=== PATIENT | male | born 1975 | race Caucasian/White ===

== ENCOUNTER 2017-12-08 08:11 | Observation (INO) | payer OTHER ==
--- NOTE | 2017-12-08 08:34 | EDPHY ---
H & P Stated Complaint: Abd "cramps" since last daphnie; n/v Time Seen by Provider: 12/08/17 08:34 - Personal History Current Tetanus Diphtheria and Acellular Pertussis (TDAP): Yes - Medical/Surgical History Other PMH: neg - Social History Smoking Status: Never smoked Constitutional: Initial Vital Signs Temperature (C) 36.7 C 12/08/17 08:13 Heart Rate 46 L 12/08/17 08:13 Respiratory Rate 16 12/08/17 08:13 Blood Pressure 112/72 12/08/17 08:13 O2 Sat (%) 99 12/08/17 08:13 O2 Delivery Mode Room Air Allergies/Adverse Reactions: No Known Allergies Allergy (Unverified 12/08/17 08:16) Home Medications: Medication Instructions Recorded NK [No Known Home Meds] 12/08/17 Medical Decision Making - Diagnostics Imaging: Discussed imaging studies w/ sheet metal assembler Radiologist, I viewed and interpreted images myself ED Course/Re-evaluation: CHIEF COMPLAINT: Abdominal pain HISTORY OF PRESENT ILLNESS: The patient is a 42 y/o male arriving with his complaining of abdominal cramping onset yesterday. Pain has gradually progressed throughout the day and he had difficulty sleeping last night due to symptoms. Pain now seems more localized to his RLQ and he has associated nausea. No history of abdominal surgeries other than inguinal hernia repair. No recent illness, recent trauma, fever, vomiting, diarrhea, urinary symptoms, testicular pain. Last PO intake 20:00 last night, no appetite today. REVIEW OF SYSTEMS: A comprehensive 10 system review of systems is otherwise negative aside from elements mentioned in the history of present illness and medical decision making. PHYSICAL EXAM: HR, BP, O2 Sat, RR. Temp noted General Appearance: Alert, well hydrated, appropriate, and non-toxic appearing. Head: Atraumatic without scalp tenderness or obvious injury Eyes: Pupils equal, round, reactive to light and accommodation, EOMI, no trauma , no injection. Nose: Atraumatic, no rhinorrhea, clear. Throat: Mucus membranes moist. Neck: Supple, nontender, no lymphadenopathy. Respiratory: No retractions, no distress, no wheezes, and no accessory muscle use. Lungs are clear to auscultation bilaterally. Cardiovascular: Regular rate and rhythm, no murmurs, rubs, or gallops. Good capillary refill all extremities. Gastrointestinal: Abdomen is soft, RLQ/McBurney's point tenderness, non- distended, no masses, no rebound, no guarding, no peritoneal signs. Musculoskeletal: Normal active ROM of all extremities, atraumatic. Neurological: Alert, appropriate, and interactive. Nonfocal. Skin: No rashes, good turgor, no nodules on palpation. Past medical history: Denies Past surgical history: Inguinal hernia repair Family history: Noncontributory Social history: at bedside. Lives in [place]. Employed. DIAGNOSTICS/PROCEDURES/CRITICAL CARE TIME: Abdominal CT: acute appendicitis DIFFERENTIAL DIAGNOSIS: The differential diagnosis for the patient's abdominal pain included but was not limited to appendicitis, cholecystitis, hernias, testicular torsion, gastritis, and urinary tract infection. MEDICAL DECISION MAKING: This is a normally healthy 42 y/o male who presents with 24-hour history of gradually worsening abdominal pain now localized to his RLQ and associated with nausea and lack of appetite. He has focal McBurney's point tenderness on exam. Presentation suspicious for acute appendicitis. Plan for IV, labs, UA, abdominal CT, and symptom management. 2L IV NS, 4mg IV Zofran ordered. WBC elevated at 16. CT shows acute appendicitis. Consulted with Dr. Martínez, surgeon, who plans to take patient to the OR. Reassessed patient and discussed findings. Answered all his questions. - Data Points Laboratory Results: Laboratory Results 12/08/17 08:40 12/08/17 08:40 12/08/17 12/08/17 12/08/17 08:52 08:40 08:40 WBC 15.79 10^3/uL H 10^3/uL (3.80-9.50) RBC 4.92 10^6/uL 10^6/uL (4.40-6.38) Hgb 15.8 g/dL g/dL (13.7-17.5) POC Hgb 16.3 gm/dL gm/dL (13.7-17.5) Hct 45.7 % % (40.0-51.0) POC Hct 48 % % (40-51) MCV 92.9 fL fL (81.5-99.8) MCH 32.1 pg pg (27.9-34.1) MCHC 34.6 g/dL g/dL (32.4-36.7) RDW 12.9 % % (11.5-15.2) Plt Count 255 10^3/uL 10^3/uL (150-400) MPV 9.8 fL fL (8.7-11.7) Neut % (Auto) 88.4 % H % (39.3-74.2) Lymph % (Auto) 5.1 % L % (15.0-45.0) [place] % (Auto) 6.1 % % (4.5-13.0) Eos % (Auto) 0.0 % L % (0.6-7.6) Baso % (Auto) 0.1 % L % (0.3-1.7) Nucleat RBC Rel Count 0.0 % % (0.0-0.2) Absolute Neuts (auto) 13.95 10^3/uL H 10^3/uL (1.70-6.50) Absolute Lymphs (auto) 0.80 10^3/uL L 10^3/uL (1.00-3.00) Absolute Monos (auto) 0.97 10^3/uL H 10^3/uL (0.30-0.80) Absolute Eos (auto) 0.00 10^3/uL L 10^3/uL (0.03-0.40) Absolute Basos (auto) 0.02 10^3/uL 10^3/uL (0.02-0.10) Absolute Nucleated RBC 0.00 10^3/uL 10^3/uL (0-0.01) Immature Gran % 0.3 % % (0.0-1.1) Immature Gran # 0.05 10^3/uL 10^3/uL (0.00-0.10) POC Sodium 138 mEq/L mEq/L (135-145) Sodium 138 mEq/L mEq/L (135-145) POC Potassium 4.5 mEq/L mEq/L (3.3-5.0) Potassium 4.7 mEq/L mEq/L (3.3-5.0) POC Chloride 102 mEq/L mEq/L (97-110) Chloride 102 mEq/L mEq/L (97-110) Carbon Dioxide 25 mEq/l mEq/l (22-31) Anion Gap 11 mEq/L mEq/L (8-16) POC BUN 23 mg/dL mg/dL (7-23) BUN 22 mg/dL mg/dL (7-23) Creatinine 1.0 mg/dL mg/dL (0.7-1.3) POC Creatinine 1.1 mg/dL mg/dL (0.7-1.3) Estimated GFR > 60 Glucose 131 mg/dL H mg/dL (70-100) POC Glucose 132 mg/dL H mg/dL (70-100) Calcium 9.8 mg/dL mg/dL (8.5-10.4) Medications Given: Discontinued Medications Sodium Chloride (Ns) 1,000 mls @ 0 mls/hr IV EDNOW ONE; Wide Open PRN Reason: Protocol Stop: 12/08/17 08:44 Last Admin: 12/08/17 08:52 Dose: 1,000 mls Ondansetron HCl (Zofran) 4 mg IVP EDNOW ONE Stop: 12/08/17 08:44 Last Admin: 12/08/17 08:53 Dose: 4 mg Point of Care Test Results: Chemistry 12/08/17 08:52 POC Sodium 138 mEq/L mEq/L (135-145) POC Potassium 4.5 mEq/L mEq/L (3.3-5.0) POC Chloride 102 mEq/L mEq/L (97-110) POC BUN 23 mg/dL mg/dL (7-23) POC Creatinine 1.1 mg/dL mg/dL (0.7-1.3) POC Glucose 132 mg/dL H mg/dL (70-100) ISTAT H&H 12/08/17 08:52 POC Hgb 16.3 gm/dL gm/dL (13.7-17.5) POC Hct 48 % % (40-51) Departure - Departure Disposition: [facility] Inpatient Acute Clinical Impression: Acute appendicitis Qualifiers: Acute appendicitis type: with localized peritonitis Qualified Code(s): K35.3 - Acute appendicitis with localized peritonitis Condition: Fair Additional Instructions: Incidental finding of a hemangioma in your liver will require a 6-month CT follow up. Please contact your primary care provider to arrange this. Referrals: Salazar Ch MD [Primary Care Provider] - As per Instructions Report Scribed for: Mahesh Abrams Report Scribed by: Cherelle Santoyo Date of Report: 12/08/17 Time of Report: 08:38
[2017-12-08] MEDS ORDERED: NS 1,000 ML IV ONE ×2 (08:43)
[2017-12-08] MEDS ORDERED: ONDANSETRON 4 MG/2 ML VIAL IVP ONE (08:43)
[2017-12-08 08:53] LABS: PLATELET COUNT 255 10^3/uL (150-400)
[2017-12-08] MEDS ORDERED: IOPAMIDOL (ISOVUE-300) 100 ML BTL ONE (08:54)
[2017-12-08] MEDS ORDERED: cefOXitin SODIUM 1 GM in NS 50 ML IV ONE ×2 (09:08→14:45)
[2017-12-08] MEDS ORDERED: HYDROmorphONE/DILAUDID 1 MG/ML INJ IVP PRN ×2 (10:48→15:12)
[2017-12-08] MEDS ORDERED: ONDANSETRON 4 MG/2 ML VIAL IVP PRN ×2 (10:48→15:12)
[2017-12-08] MEDS ORDERED: ACETAMINOPHEN 325 MG TAB PO SCH (11:00)
[2017-12-08] MEDS ORDERED: KETOROLAC 30 MG/1 ML SDV ONE ×2 (11:03→14:03)
[2017-12-08] MEDS: KETOROLAC 15 MG/1 ML SDV IVP SCH ×4 (11:06→23:07)
[2017-12-08] MEDS: NS 1,000 ML IV SCH (11:47)
--- NOTE | 2017-12-08 11:51 | GHP ---
DATE OF ADMISSION: 12/08/2017 ADMITTING DIAGNOSIS: Acute unruptured appendicitis. HISTORY: The patient is a 42-year-old white male who complained of minimal abdominal discomfort at 2:00 p.m. yesterday. At 8:00 p.m., he felt "gassy". At 10:00 p.m., he could not get comfortable to sleep because of a right lower quadrant pain and vomiting. He went first to an urgent care this morning. They felt he needed to come straight to the hospital. He was seen by Dr. Mahesh [place] [address] with 88% neutrophils and a CAT scan shows a large appendix with an appendicolith. I was asked to come see the patient. There is no history of a recent upper respiratory tract infection or diarrhea. He denied any prior symptoms. He has had an open left inguinal hernia repair, but no intraabdominal surgery. He has traveled to [place] and [place] in the last 6 months. He has not had any antibiotics in the last 6 months. There is no history of inflammatory bowel disease. PAST MEDICAL HISTORY: He is a nonsmoker. He does not drink. He has no known drug allergies. He takes magnesium to keep his stool soft as he has had a fissure in the past. There are no other medications. His only surgery is the above-mentioned open left inguinal hernia repair. There is no history of rheumatic fever, tuberculosis, hepatitis, or transfusions. REVIEW OF SYSTEMS: He wears lenses for visual correction. He has occasional problems with hay fever. Fissures are not a problem for him at this time. There are no limits on his activities. No history of steroid use. His mother is 70 years old and had a benign brain tumor removed. His father is 70 years old and had a coronary artery bypass grafting. The patient has an older half- brother who is 52. He is followed in by a full sister who is 41 and a full brother who is 34. All 3 are healthy. There are no bleeding disorders, clotting disorders, difficulty with anesthesia in the patient or the family. PHYSICAL EXAMINATION: GENERAL: He is awake, alert, and in mild distress. NEUROLOGIC: He is oriented to person, place, and time. There are no focal or lateralizing neurologic findings. HEAD: Skull is normocephalic and atraumatic. Normal dental occlusion. NECK: There are no carotid bruits. Thyroid is not enlarged. Neck is supple and nontender. LYMPHATICS: There is no cervical, supraclavicular, axillary or inguinal lymphadenopathy. BACK: Back is unremarkable. LUNGS: Clear to auscultation. CARDIAC: Shows S1, S2 to be normal. Normal split of S2. ABDOMEN: Hypoactive bowel sounds. He is tender with cough to the right of the umbilicus approximately 2 -1/2 fingerbreadths and 1 fingerbreadth below that is tender on a scale of 6 on a scale of 1 to 10. Left upper quadrant is 2 to palpation, left mid abdomen is 1, left lower quadrant is 3, epigastrium is 2, periumbilical area is 1, suprapubic area is 1, right upper quadrant is 2, right mid abdomen is 5, right lower quadrant is 4. Obturator and psoas signs are negative. IMAGING: CAT scan certainly does show an appendix with a thickened wall and appendicolith and periappendiceal stranding. I do not see signs of free fluid. PLAN: We will plan to perform a laparoscopic appendectomy. He has received a gram of cefoxitin. /[id number]/MODL MTDD
[2017-12-08] MEDS: ACETAMINOPHEN 500 MG TAB PO SCH ×2 (13:10→20:35)
[2017-12-08] MEDS ORDERED: cefOXitin SODIUM 1 GM in NS 50 ML IV SCH (14:00)
[2017-12-08] MEDS ORDERED: MIDAZOLAM 2 MG/2 ML VIAL IVP ONE (14:00)
--- NOTE | 2017-12-08 14:00 | PDANEPAE ---
ANE History of Present Illness appy ANE Past Medical History - Cardiovascular History Hx Hypertension: No Hx Arrhythmias: No Hx Chest Pain: No Hx Coronary Artery / Peripheral Vascular Disease: No Hx CHF / Valvular Disease: No Hx Palpitations: No - Pulmonary History Hx COPD: No Hx Asthma/Reactive Airway Disease: No Hx Recent Upper Respiratory Infection: No Hx Oxygen in Use at Home: No Hx Sleep Apnea: No Sleep Apnea Screening Result - Last Documented: Negative - Neurologic History Hx Cerebrovascular Accident: No Hx Seizures: No Hx Dementia: No - Endocrine History Hx Diabetes: No Hypothyroid: No Hyperthyroid: No Obesity: no - Renal History Hx Renal Disorders: No - Liver History Hx Hepatic Disorders: No - Neurological & Psychiatric Hx Hx Neurological and Psychiatric Disorders: No - Cancer History Hx Cancer: No - Chronic Pain History Chronic Pain: No ANE Review of Systems Review of Systems: - Exercise capacity Exercise capacity: >=4 METS ANE Patient History - Allergies Allergies/Adverse Reactions: No Known Allergies Allergy (Verified 12/08/17 13:28) - Home Medications Home medications: home medication list seen and reviewed Home Medications: NK [No Known Home Meds] 12/08/17 [Last Taken Unknown] - NPO status NPO Status: no food or drink >8 hours NPO Since - Liquids (Date): 12/07/17 NPO Since - Liquids (Time): 20:00 NPO Since - Solids (Date): 12/07/17 NPO Since - Solids (Time): 20:00 - Anes Hx Anes Hx: no prior problems - Smoking Hx Smoking Status: Never smoked ANE Labs/Vital Signs - Labs Result Diagrams: 12/08/17 08:40 12/08/17 08:40 - Vital Signs Blood Pressure: 131/81 Heart Rate: 50 Respiratory Rate: 16 O2 Sat (%): 100 Height: 177.8 cm Weight: 77.111 kg ANE Physical Exam - Airway Mallampati Score: Class 2 Mouth exam: normal dental/mouth exam - Pulmonary Pulmonary: no respiratory distress - Cardiovascular Cardiovascular: regular rate and rhythym - ASA Status ASA Status: I ANE Anesthesia Plan Anesthesia Plan: general endotracheal anesthesia
[2017-12-08] MEDS ORDERED: PROPOFOL 200 MG/20 ML VIAL ONE (14:02)
[2017-12-08] MEDS ORDERED: fentaNYL 100 MCG/2 ML INJ ONE ×2 (14:02→15:40)
[2017-12-08] MEDS ORDERED: LIDOCAINE 2% 2 ML INJ ONE ×3 (14:03)
[2017-12-08] MEDS ORDERED: ONDANSETRON 4 MG/2 ML VIAL ONE (14:03)
[2017-12-08] MEDS ORDERED: ROCURONIUM 50 MG/5 ML VIAL ONE (14:03)
[2017-12-08] MEDS ORDERED: DEXAMETHASONE 4 MG/ML VIAL ONE (14:03)
[2017-12-08] MEDS ORDERED: MIDAZOLAM 2 MG/2 ML VIAL ONE (14:05)
[2017-12-08] MEDS ORDERED: GLYCOPYRROLATE 0.2 MG/1 ML VIAL ONE (14:28)
[2017-12-08] MEDS ORDERED: ceFAZolin 1 GM/5 ML SYR ONE (14:33)
[2017-12-08] MEDS ORDERED: HEPARIN 5,000 UNIT/0.5 ML INJ ONE (14:33)
[2017-12-08] MEDS ORDERED: hydrALAZINE 20 MG/ML VIAL ONE (14:49)
[2017-12-08] MEDS ORDERED: SUGAMMADEX SODIUM 200 MG/2 ML VIAL IVP ONE (15:03)
[2017-12-08] MEDS ORDERED: NALOXONE HCL 0.4 MG/ML INJ IVP PRN ×2 (15:12→15:25)
[2017-12-08] MEDS ORDERED: ALBUTEROL 3 ML DEYVIAL IH PRN (15:12)
[2017-12-08] MEDS ORDERED: MEPERIDINE 25 MG/0.5 ML AMP ONE (15:24)
--- NOTE | 2017-12-08 15:24 | POSTANESTH ---
Post Anesthetic Evaluation Cardiovascular Status: Normal, Stable Respiratory Status: Normal, Stable Level of Consciousness/Mental Status: Can Participate in Eval Pain Control: Adequate, Prn Tx Ordered Nausea/Vomiting Control: Adequate, Prn Tx Ordered Complications Possibly Related to Anesthesia: None Noted
[2017-12-08] MEDS ORDERED: MEPERIDINE 25 MG/0.5 ML AMP IVP PRN (15:25)
--- NOTE | 2017-12-08 15:33 | POSTOPPROG ---
Post Op Note Date of Operation: 12/08/17 Surgeon: Salazar Martínez Anesthesia: GET(General Endotracheal) Pre-op Diagnosis: acute appendicitis Post-op Diagnosis: acute appendicitis, adhesions, L indirect inguinal hernia Indication: acute appendicitis Procedure: laparoscopic appendectomy and enterolysis Findings: acute appendicitis, adhesions, L indirect inguinal hernia Inf/Abcess present in the surg proc area at time of surgery?: No EBL: Minimal Total fluids administered: 750cc Complications: none Specimen(s): appendix
[2017-12-08] MEDS: fentaNYL 100 MCG/2 ML INJ IVP PRN ×2 (15:42→15:55)
--- NOTE | 2017-12-08 16:08 | GOP ---
DATE OF OPERATION: SURGEON: Salazar Martínez MD PREOPERATIVE DIAGNOSIS: Acute appendicitis. POSTOPERATIVE DIAGNOSIS: 1. Acute appendicitis. 2. Adhesions. 3. Left indirect inguinal hernia. PROCEDURE PERFORMED: Laparoscopic appendectomy and enterolysis. FINDINGS: Acute appendicitis, adhesions, left indirect inguinal hernia. SPECIMENS: Appendix. ESTIMATED BLOOD LOSS: Minimal. INDICATIONS: Acute appendicitis. DESCRIPTION OF PROCEDURE: The patient is placed on the operating table in supine position. After induction of adequate general endotracheal anesthesia, the abdomen was carefully clipped, prepped, and draped. A surgical time-out is carried out and agreed to by all members of the operative team. A curvilinear incision was planned in the inferior umbilical fold. A transverse suprapubic incision and an oblique left lower quadrant incision were planned as well. The skin was incised in all 3 sites and the dermal incision was completed with Bovie electrocautery. Dissection was continued at the umbilical site using a combination of cautery and dissection technique down to the anterior rectus sheath which was elevated between 2 Allis clamps. The fascia was divided in the midline. A pursestring of #0 PDS was placed in the fascia. An 11/12 mm disposable Lizy trocar was positioned. Intra-abdominal insufflation was carried out to 15 mmHg. A 5 mm port was placed through left lower quadrant oblique incision. 5 mm port was placed through the suprapubic incision. On examining the abdomen, there was a moderate-sized indirect left inguinal hernia. There was a large wall of omentum which precluded visualization of the right lower quadrant. This was carefully taken down from the anterior abdominal wall using Harmonic scalpel. Once this was done, it was carefully from the appendix. The appendix was on the back side of it. The appendix was now carefully elevated with its mesoappendix. The mesoappendix was divided down to the base of the appendix on the cecum. The appendix was cleared circumferentially. A 35 mm Endo MARGRET stapler was used to transect the appendix with a cuff of cecum. The specimen was removed in an EndoCatch bag via the umbilical port site. Pneumoperitoneum was re-established. Hemostasis was checked and found to be excellent. Irrigation with heparin and Ancef containing irrigant was carried out. Note is made there was serous, but not turbid fluid in the pelvis on initial evaluation. The small bowel was run for a distance of 3 feet. There was no mesenteric adenitis identified. There was no Meckel diverticulum identified. The ports were removed under direct vision. Pneumoperitoneum was released. Inverted simple suture of #0 feet PDS was placed in the midportion of the infraumbilical fascial incision. This was tied. The pursestring was now tied. The subcutaneous tissue was well irrigated and hemostasis was checked. Hemostasis was found to be excellent. All 3 incisions were closed with inverted simple sutures of #4-0 Vicryl. Mastisol and Steri-Strips were placed. Band-Aids were positioned. The patient was transferred back to recovery in stable and satisfactory condition. FLUIDS: 750 cc. /[id number]/MODL MTDD
[2017-12-08] MEDS: cefOXitin SODIUM 1 GM in NS 50 ML IV SCH (22:36)
[2017-12-09] MEDS: cefOXitin SODIUM 1 GM in NS 50 ML IV SCH (03:39)
[2017-12-09] MEDS: ACETAMINOPHEN 500 MG TAB PO SCH (03:41)
[2017-12-09] MEDS: NS 1,000 ML IV SCH (05:24)
[2017-12-09] MEDS: KETOROLAC 15 MG/1 ML SDV IVP SCH (05:24)
[2017-12-09 07:43] VITALS: BP 106/60
--- NOTE | 2017-12-09 08:36 | SOAPPROG ---
SOAP Progress Note Assessment/Plan: 12/09/17 08:33 PAD#1POD#1 Assessment: Doing well! VSS Eating. Pain controlled Plan: Home today Subjective: I feel great! Notes slight uvula irritation. Objective: Vital Signs Temp Pulse Resp BP Pulse Ox 36.8 C 56 L 12 106/60 94 12/09/17 07:42 12/09/17 07:42 12/09/17 07:42 12/09/17 07:42 12/09/17 07:42 12/08/17 12/09/17 12/10/17 05:59 05:59 05:59 Intake Total 3670 Balance 3670 - Time Spent With Patient Time Spent With Patient: 15 Physical Exam - Physical Exam General Appearance: WD/WN, alert, no apparent distress Neck: full range of motion Respiratory: chest non-tender, lungs clear, normal breath sounds Cardiac/Chest: regular rate, rhythm Abdomen: normal bowel sounds, non-tender, soft, other (incisions clean and dry) Male Genitalia: deferred Rectal: deferred Back: Normal inspection Skin: normal color, warm/dry Extremities: normal range of motion Neuro/Psych: no motor/sensory deficits, alert, normal mood/affect, oriented x 3 ICD10 Worksheet Patient Problems: Problems Problem Status Onset Acute appendicitis Acute
--- NOTE | 2017-12-09 09:01 | GDS ---
DISCHARGE DIAGNOSIS: Acute appendicitis with appendicolith. ADDITIONAL DIAGNOSIS: Left indirect inguinal hernia. OPERATION PERFORMED: Laparoscopic appendectomy. CONDITION AT DISCHARGE: Good. DISPOSITION: Home. DIET: Unrestricted, although I recommend that he avoid constipating foods such as bananas, rice, hernan lesauce, and cheese. There were no texture limitations. MEDICATIONS AT DISCHARGE: Limited to Tylenol 1000 mg every 8 hours routinely, Toradol 10 mg p.o. q.6 hours routinely, and he may substitute Motrin 200 mg every 4 when the Tylenol prescription is comple ambrose. He does have Dilaudid in case he has any increasing discomfort, although I have encouraged him to contact Dr. Jurado' office if there is any increasing discomfort. DISCHARGE INSTRUCTIONS: I have asked him to lift less than 10 pounds for the next 3 weeks, not to sh ower, to keep his Steri-Strips in place. He is to take a multivitamin with zinc, copper, and C daily with 100% of the RDAs of zinc, copper, and C. He is to watch for signs of infection. Superficial w ould be redness, warmth, swelling, and tenderness; and deep space would be loss of appetite, increasi ng abdominal pain, fevers, chills and general malaise. He will follow up with Dr. Jurado or his nelly rivera in the next 2 weeks. He will bring the left inguinal hernia to their attention. He believes Phil Jurado fixed his prior right inguinal hernia. /[id number]/MODL
== END 2017-12-09 09:40 | disposition home or self-care (01) ==
LOC: F3N 11:14
PROVIDERS: ADMIT Surgery; ATTEND Surgery
PROC: 0DTJ4ZZ Resection of Appendix, Percutaneous Endoscopic Approach (ICD-10-PCS; principal; 2017-12-08 12:00)
DX: K35.80 Unspecified acute appendicitis (principal); K40.90 Unilateral inguinal hernia, without obstruction or gangrene, not specified as recurrent; E86.9 Volume depletion, unspecified
CPT/HCPCS: 44970; 74177; 99285; G0378; 82435-PO; 82565-PO; 82947-PO; 84132-PO; 84295-PO; 84520-PO; 85014-PO; J0360; J0694; J1100; J1644; J1885; J2175; J2250; J2405; J2704; J3010; Q9967